=== PATIENT | male | born 1990 | race African-American/Black ===

== ENCOUNTER 2016-11-06 03:40 | Emergency (ER) | payer SELFPAY ==
[~2016-11-06] VITALS: Ht 180.3 cm; Wt 80.0 kg
[~2016-11-06 03:40] MED LIST: NAPR550 PO
[2016-11-06 03:41] VITALS: BP 141/86; PULSE 57; RESP 16; TEMP 98.2; O2SAT 100
[2016-11-06] MEDS ORDERED: PRED-503 PO (03:56)
[2016-11-06] MEDS ORDERED: VIST50CA PO (03:56)
[2016-11-06] MEDS ORDERED: diphenhydrAMINE HCL 50 MG/ML VIAL IM ONE (04:00)
[2016-11-06] MEDS ORDERED: DEXAMETHASONE SOD PHOS 20 MG/5 ML VIAL IM ONE (04:00)
--- NOTE | 2016-11-06 04:00 | PD ---
HPI Chief Complaint: Skin Problem Time Seen by Provider: 03:56 Travel History International Travel<30 days: No Contact w/Intl Traveler<30days: No Traveled to known affect area: No History of Present Illness HPI 26-year-old male presents to emergency department with complaints of a pruritic rash today. He states that he is unsure the etiology. He does report putting on some new close that was in his mother's garage. Is unsure whether it may have been the detergent or not. He states that the rash is pruritic in nature all over. Patient's rash is pruritic and irritating. He denies any other secondary complaints. No shortness of breath or wheezing. He denies any history of allergic reactions in the past. No other known exposures. [facility] Past Medical History Narrative Medical Denies Medical History: Denies Significant Hx Diminished Hearing: No Tetanus Vaccination: < 5 Years Influenza Vaccination: No Past Surgical History Surgical History: No Previous Surgery Social History Alcohol Use: Yes Tobacco Use: Yes Substance Use: No Allergies-Medications (Allergen,Severity, Reaction): Coded Allergies: No Known Allergies (Unverified , 11/06/16) Reported Meds & Prescriptions Reported Meds & Active Scripts Active No Active Prescriptions or Reported Medications Review of Systems Except as stated in HPI: all other systems reviewed are Neg Skin: Positive Rash, Positive Hives Neurologic: No: Weakness, Change in Mentation Physical Exam Narrative GENERAL: Well-developed, well-nourished in no acute distress. Nontoxic appearing. HEAD: Normocephalic, atraumatic. EYES: Pupils equal round and reactive. Extraocular motions intact. No scleral icterus. No injection or drainage. ENT: TMs clear without erythema. The external auditory canals clear. Nose: clear . Posterior pharynx is pink and moist. No tonsillar edema or exudate. Uvula midline. Airway patent. NECK: Trachea midline.Supple, nontender, moves head freely. No central bony tenderness or spasm. CARDIOVASCULAR: Regular rate and rhythm without murmurs, gallops, or rubs. RESPIRATORY: Clear to auscultation. Breath sounds equal bilaterally. No wheezes , rales, or rhonchi. GASTROINTESTINAL: Abdomen soft, non-tender, nondistended. No hepato-splenomegaly , or palpable masses. No guarding. EXTREMITIES: No clubbing, cyanosis, or edema. No joint tenderness, effusion, or edema noted. BACK: Nontender without deformity or crepitance. No flank tenderness. Skin: The patient has diffuse hives on the trunk and extremities. Data Data Last Documented VS Vital Signs Date Time Temp Pulse Resp B/P Pulse Ox O2 Delivery O2 Flow Rate FiO2 11/06/16 03:46 16 11/06/16 03:41 98.2 57 141/86 100 Room Air Orders Diphenhydramine Inj (Benadryl Inj) (11/06/16 04:00) Dexamethasone Inj (Decadron Inj) (11/06/16 04:00) MDM Medical Decision Making Medical Screen Exam Complete: Yes Emergency Medical Condition: Yes Medical Record Reviewed: Yes Differential Diagnosis MDM: High Differential diagnoses: Abscess, folliculitis, cellulitis, lymphangitis, abrasion, contact dermatitis, allergic reaction Narrative Course Patient's have an allergic reaction etiology unclear. Patient's given 50 g of Benadryl IM and Decadron 10 mg IM. This is allergic reaction Diagnosis Primary Impression: Allergic reaction Qualified Code: T78.40XA - Allergic reaction, initial encounter Patient Instructions: General Instructions Additional Instructions: Rest. Elevation. Take 1 Zyrtec or Claritin daily. Prednisone and Vistaril. Follow-up with a primary care doctor in one week. Return to the ER for any problems. Med/Other Pt SpecificInfo: Prescription(s) given Scripts Prednisone (Deltasone)20 Mg Tab20 Mg PO TID #15 TAB Prov:Iqra Edwards MD 11/06/16 Hydroxyzine Pamoate (Vistaril)50 Mg Cap50 Mg PO QID PRN (ITCHING) #30 CAP Prov:Iqra Edwards MD 11/06/16 Disposition: 01 DISCHARGE HOME Condition: Stable Tanner Hastings November 06, 2016 04:00
== END 2016-11-06 04:43 | disposition home or self-care (01) ==
LOC: NEPK 03:40
DX: T78.40XA Allergy, unspecified, initial encounter (principal); R21 Rash and other nonspecific skin eruption; L29.9 Pruritus, unspecified; Z72.0 Tobacco use
CPT/HCPCS: 99282

== ENCOUNTER 2017-03-21 19:08 | Emergency (ER) | payer SELFPAY ==
[~2017-03-21] VITALS: Ht 180.3 cm; Wt 79.5 kg
[~2017-03-21 19:08] MED LIST changes: -NAPR550 PO; +PRED-503 PO; +VIST50CA PO
[2017-03-21 19:09] VITALS: BP 135/85; PULSE 71; RESP 20; TEMP 98.5; O2SAT 100
[2017-03-21] MEDS ORDERED: AMOX500C PO (19:27)
[2017-03-21] MEDS ORDERED: DICL75TA PO (19:27)
--- NOTE | 2017-03-21 19:29 | PD ---
HPI Chief Complaint: Oral / Dental Pain or Problem Time Seen by Provider: 19:25 Travel History International Travel<30 days: No Contact w/Intl Traveler<30days: No Traveled to known affect area: No History of Present Illness HPI 27-year-old male presents to emergency Department with complaints of left upper maxilla dental pain. The patient states the pain is been present now for past 2 days. Mild to moderate intensity. He denies any fever chills. No facial swelling. No sore throat or ear pain. PFSH Past Medical History Medical History: Denies Significant Hx Diminished Hearing: No Tetanus Vaccination: < 5 Years Past Surgical History Surgical History: No Previous Surgery Social History Alcohol Use: Yes Tobacco Use: Yes Substance Use: No Allergies-Medications (Allergen,Severity, Reaction): Coded Allergies: No Known Allergies (Unverified , 11/06/16) Reported Meds & Prescriptions Reported Meds & Active Scripts Active Vistaril (Hydroxyzine Pamoate) 50 Mg Cap 50 Mg PO QID PRN Deltasone (Prednisone) 20 Mg Tab 20 Mg PO TID Review of Systems Except as stated in HPI: all other systems reviewed are Neg Physical Exam Narrative GENERAL: Well-developed, well-nourished in no acute distress. Nontoxic appearing. HEAD: Normocephalic, atraumatic. EYES: Pupils equal round and reactive. Extraocular motions intact. No scleral icterus. No injection or drainage. ENT: TMs clear without erythema. The external auditory canals clear. Nose: clear . Posterior pharynx is pink and moist. No tonsillar edema or exudate. Uvula midline. Airway patent. Patient has gingival erythema and edema around tooth #15 and 16. No appreciable cavity. NECK: Trachea midline.Supple, nontender, moves head freely. No central bony tenderness or spasm. CARDIOVASCULAR: Regular rate and rhythm without murmurs, gallops, or rubs. RESPIRATORY: Clear to auscultation. Breath sounds equal bilaterally. No wheezes , rales, or rhonchi. GASTROINTESTINAL: Abdomen soft, non-tender, nondistended. No hepato-splenomegaly , or palpable masses. No guarding. EXTREMITIES: No clubbing, cyanosis, or edema. No joint tenderness, effusion, or edema noted. BACK: Nontender without deformity or crepitance. No flank tenderness. Data Data Last Documented VS Vital Signs Date Time Temp Pulse Resp B/P (MAP) Pulse Ox O2 Delivery O2 Flow Rate FiO2 03/21/17 19:09 98.5 71 20 135/85 (102) 100 Room Air Orders Orders Amoxicillin (Trimox) (03/21/17 19:30) Acetamin-Hydrocod 325-5 Mg ([place] 5-325 (03/21/17 19:30) MDM Medical Decision Making Medical Screen Exam Complete: Yes Emergency Medical Condition: Yes Medical Record Reviewed: Yes Differential Diagnosis MDM: Moderate Differential diagnoses: Dental abscess, dental caries, osteitis, cellulitis Narrative Course Patient is given amoxicillin 1 g and Lortab 5 mg by mouth This is dentalgia Diagnosis Primary Impression: Dentalgia Patient Instructions: Narcotic given in the ED, General Instructions Additional Instructions: Rest. Saltwater gargles. [place] oil on cotton balls. Amoxicillin and diclofenac. follow-up with a dentist as soon as possible. And return to the ER if any problems. Med/Other Pt SpecificInfo: Prescription(s) given Scripts Diclofenac Sodium DR (Diclofenac Sodium DR) 75 Mg Tabdr 75 MG PO BID, #20 TAB 0 Refills Prov: Neal Calderón MD 03/21/17 Amoxicillin (Amoxicillin) 500 Mg Cap 1000 MG PO BID for Infection for 10 Days, #40 CAP 0 Refills Prov: Neal Calderón MD 03/21/17 Disposition: 01 DISCHARGE HOME Condition: Stable Tanner Hastings Mar 21, 2017 19:29
[2017-03-21] MEDS ORDERED: ACETAMINOPHEN/HYDROcodone 325 MG/5 MG TAB PO ONE (19:30)
[2017-03-21] MEDS ORDERED: AMOXICILLIN (TRIHYDRATE) 500 MG CAP PO ONE (19:30)
[2017-03-21] MEDS ORDERED: ACETAMINOPHEN/HYDROcodone 325 MG/5 MG TAB ONE (19:43)
[2017-03-21] MEDS ORDERED: AMOXICILLIN (TRIHYDRATE) 500 MG CAP ONE (19:43)
== END 2017-03-21 19:56 | disposition home or self-care (01) ==
LOC: NEPK 19:08
DX: K08.89 Other specified disorders of teeth and supporting structures (principal); Z72.0 Tobacco use; Z79.899 Other long term (current) drug therapy
CPT/HCPCS: 99284

== ENCOUNTER 2017-06-12 18:41 | Emergency (ER) | payer SELFPAY ==
[~2017-06-12] VITALS: Ht 182.9 cm; Wt 81.8 kg
[~2017-06-12 18:41] MED LIST changes: +AMOX500C PO; +DICL75TA PO
[2017-06-12 18:42] VITALS: BP 137/86; PULSE 86; RESP 18; TEMP 98.6; O2SAT 98
--- NOTE | 2017-06-12 19:47 | RADRPT ---
EXAM DATE/TIME: 06/12/2017 19:01 [place] COMPARISON: No previous studies available for comparison. INDICATIONS : Patient complains of pain in left 2nd-4th MTPJs after dropping a piece of furniture on left foot last night. MEDICAL HISTORY : None. SURGICAL HISTORY : None. ENCOUNTER: Initial ACUITY: 2 days PAIN SCORE: 8/10 LOCATION: Left Foot FINDINGS: Three view examination of the left foot demonstrates no soft tissue swelling, dislocation, or fractur e. The tarsal bones appear intact. The interphalangeal and metatarsophalangeal joints are intact. The calcaneus is intact. Bony mineralization is normal. CONCLUSION: No acute disease. Sylvester Rod MD on June 12, 2017 at 19:45 Board Certified Radiologist. This report was verified electronically.
--- NOTE | 2017-06-12 20:41 | PD ---
HPI Chief Complaint: Injury Time Seen by Provider: 20:27 Travel History International Travel<30 days: No Contact w/Intl Traveler<30days: No Traveled to known affect area: No History of Present Illness HPI 27-year-old male presents to the emergency room for evaluation of left foot pain and swelling after injuring it last night. Patient was going down the stairs when he dropped a large stressor on his foot. He had immediate pain. He has not taken anything for symptoms. He did apply an Vin wrap. Pain is worsened with certain range of motion and when he pushes on the area. He has been ambulatory without difficulty. Denies chronic medical conditions or daily medications. PFSH Past Medical History Diminished Hearing: No Social History Alcohol Use: Yes Tobacco Use: Yes Substance Use: No Allergies-Medications (Allergen,Severity, Reaction): Coded Allergies: No Known Allergies (Unverified , 11/06/16) Reported Meds & Prescriptions Reported Meds & Active Scripts Active Diclofenac Sodium DR (Diclofenac Sodium) 75 Mg Tabdr 75 Mg PO BID Amoxicillin 500 Mg Cap 1,000 Mg PO BID 10 Days Deltasone (Prednisone) 20 Mg Tab 20 Mg PO TID Vistaril (Hydroxyzine Pamoate) 50 Mg Cap 50 Mg PO QID PRN Review of Systems Except as stated in HPI: all other systems reviewed are Neg Physical Exam Narrative GENERAL: Well-nourished, well-developed male in no acute distress. Afebrile. Ambulatory. SKIN: Focused skin assessment warm/dry. Moderate ecchymosis HEAD: Normocephalic. EYES: No scleral icterus. No injection or drainage. NECK: Supple, trachea midline. No JVD or lymphadenopathy. CARDIOVASCULAR: Regular rate and rhythm without murmurs, gallops, or rubs. RESPIRATORY: Breath sounds equal bilaterally. No accessory muscle use. MUSCULOSKELETAL: No cyanosis. Moderate edema of the left foot especially around the second and third metatarsophalangeal joints. 2+ dorsalis pedis pulse. Less than 2 second capillary refill distally. Full range of motion of the foot but with pain. Compartments soft. Data Data Last Documented VS Vital Signs Date Time Temp Pulse Resp B/P (MAP) Pulse Ox O2 Delivery O2 Flow Rate FiO2 06/12/17 18:42 98.6 86 18 137/86 (103) 98 Room Air Orders Orders Foot, Complete ([id number]) (06/12/17 ) [facility] Medical Decision Making Medical Screen Exam Complete: Yes Emergency Medical Condition: Yes Medical Record Reviewed: Yes Differential Diagnosis Contusion, fracture, sprain, strain Narrative Course 27-year-old male presents to the emergency room for evaluation of left foot pain after dropping a dresser on it last night. Left foot is neurovascularly intact with 2+ dorsalis pedis pulse and less than 2 second capillary refill distally. Compartments soft. X-ray is negative. Discharged with orthopedic instructions. Patient told to follow-up with a primary care physician or return for worsening symptoms. He understands and agrees to plan. Diagnosis Primary Impression: Contusion of left foot Qualified Codes: S90.32XA - Contusion of left foot, initial encounter Referrals: Primary Care Physician Additional Instructions: Rest and drink plenty of fluids. Take ibuprofen with food as directed, as needed for pain. Elevate as much as possible. Keep wrapped. Apply ice to the affected area for 20 minutes at a time, as needed for pain and swelling. Follow-up with a primary care physician. Return to the emergency room for worsening symptoms. Disposition: 01 DISCHARGE HOME Condition: Stable Arianna Restrepo Jun 12, 2017 20:41
== END 2017-06-12 21:24 | disposition home or self-care (01) ==
LOC: NEPK 18:41
DX: S90.32XA Contusion of left foot, initial encounter (principal); W20.8XXA Other cause of strike by thrown, projected or falling object, initial encounter; Y93.89 Activity, other specified
CPT/HCPCS: 73630; 99283

== ENCOUNTER 2017-09-05 23:13 | Emergency (ER) | payer SELFPAY ==
[~2017-09-05] VITALS: Ht 180.3 cm; Wt 81.5 kg
[2017-09-05 23:46] VITALS: BP 134/74; PULSE 57; RESP 16; TEMP 97.5; O2SAT 98
[2017-09-05] MEDS ORDERED: BACT800T5 PO (23:58)
[2017-09-06] MEDS ORDERED: SULFAMETHOXAZOLE-TRIMETHOPRIM DS 800-160 MG TAB PO ONE
--- NOTE | 2017-09-06 00:04 | PD ---
HPI Chief Complaint: Injury Time Seen by Provider: 23:53 Travel History International Travel<30 days: No Contact w/Intl Traveler<30days: No Traveled to known affect area: No History of Present Illness HPI 27-year-old black male presents emergency department with complaints of left index finger pain. 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 He denies any fever or chills. No numbness or tingling. No known trauma. PFSH Past Medical History Medical History: Denies Significant Hx Diminished Hearing: No Tetanus Vaccination: < 5 Years Influenza Vaccination: No Past Surgical History Surgical History: No Previous Surgery Social History Alcohol Use: Yes Tobacco Use: Yes Substance Use: No Allergies-Medications (Allergen,Severity, Reaction): Coded Allergies: No Known Allergies (Unverified , 11/06/16) Reported Meds & Prescriptions Reported Meds & Active Scripts Active Bactrim DS (Sulfamethoxazole-Trimethoprim) 800-160 Mg Tab 1 Tab PO BID Diclofenac Sodium DR (Diclofenac Sodium) 75 Mg Tabdr 75 Mg PO BID Amoxicillin 500 Mg Cap 1,000 Mg PO BID 10 Days Deltasone (Prednisone) 20 Mg Tab 20 Mg PO TID Vistaril (Hydroxyzine Pamoate) 50 Mg Cap 50 Mg PO QID PRN Review of Systems Except as stated in HPI: all other systems reviewed are Neg General / Constitutional: No: Fever, Chills Musculoskeletal: Positive: Pain, No: Myalgias, Arthralgias, Limited ROM Skin: No Rash, No Itching Physical Exam Narrative GENERAL: This is a well-nourished, well-developed patient, in no apparent distress. SKIN: No rashes, ecchymoses or lesions. Warm and dry. HEAD: Atraumatic. Normocephalic. EYES: PERRL, EOMI, no discharge or injection. No scleral icterus. EARS: Clear NOSE: Nasal turbinates appear normal. THROAT: Mucosa pink and moist. Airway patent. NECK: Trachea midline. supple, moves head freely. LUNGS: Clear to auscultation. CV: Regular in rhythm. ABDOMEN: Soft nontender. EXT: No clubbing cyanosis or edema. Examination of the left index finger reveals pain along the lateral aspect of the nailbed. There is mild swelling. No fluctuance or pointing. No erythema or warmth. No evidence of trauma. Data Data Last Documented VS Vital Signs Date Time Temp Pulse Resp B/P (MAP) Pulse Ox O2 Delivery O2 Flow Rate FiO2 09/05/17 23:46 97.5 57 16 134/74 (94) 98 Orders Orders Sulfamet-Trimeth Ds 800-160 Mg (Bactrim (09/06/17 00:00) Ed Discharge Order (09/05/17 23:55) MDM Medical Decision Making Medical Screen Exam Complete: Yes Emergency Medical Condition: Yes Medical Record Reviewed: Yes Differential Diagnosis MDM: High Differential diagnoses: Abscess, folliculitis, cellulitis, lymphangitis, abrasion, contact dermatitis, paronychia Narrative Course This is paronychia patient is given Bactrim DS p.o. Diagnosis Primary Impression: Paronychia of left index finger Patient Instructions: General Instructions Additional Instructions: Rest. Elevation. Epson salt soaks 3 times daily. 3 Advil every 6 hours. Bactrim DS. Recheck with a primary care doctor in the next 3-5 days. Return to the ER if any problems. Med/Other Pt SpecificInfo: Prescription(s) given Scripts Sulfamethoxazole-Trimethoprim (Bactrim DS) 800-160 Mg Tab 1 TAB PO BID for Infection, #20 TAB 0 Refills Prov: Chito Loza MD 09/05/17 Disposition: 01 DISCHARGE HOME Condition: Stable Tanner Hastings Sep 06, 2017 00:04
== END 2017-09-06 00:23 | disposition home or self-care (01) ==
LOC: NEPD 23:13
DX: L03.012 Cellulitis of left finger (principal); Z72.0 Tobacco use
CPT/HCPCS: 99283

== ENCOUNTER 2017-09-06 14:42 | Emergency (ER) | payer SELFPAY ==
[~2017-09-06] VITALS: Ht 180.3 cm; Wt 81.5 kg
[~2017-09-06 14:42] MED LIST changes: +BACT800T5 PO
[2017-09-06 14:48] VITALS: BP 123/65; PULSE 49; RESP 18; TEMP 97.3; O2SAT 99
== END 2017-09-06 16:28 | disposition left against medical advice (07) ==
LOC: NED 14:42
DX: R07.81 Pleurodynia (principal)
CPT/HCPCS: 99281

== ENCOUNTER 2017-10-13 09:52 | Emergency (ER) | payer SELFPAY ==
[~2017-10-13] VITALS: Ht 180.3 cm; Wt 83.0 kg
[2017-10-13 10:01] VITALS: BP 134/75; PULSE 63; RESP 18; TEMP 97.7; O2SAT 99
[2017-10-13] MEDS ORDERED: TRAM50TA PO (10:10)
[2017-10-13] MEDS ORDERED: PENI500T PO (10:10)
--- NOTE | 2017-10-13 10:19 | PD ---
HPI Chief Complaint: Oral / Dental Pain or Problem Time Seen by Provider: 10:04 Travel History International Travel<30 days: No Contact w/Intl Traveler<30days: No Traveled to known affect area: No History of Present Illness HPI This patient complains of dental pain. Location is left upper molar. Duration 2 days. Severity is moderate. He does not have a dentist [facility] Past Medical History Diminished Hearing: No Social History Alcohol Use: Yes Tobacco Use: Yes Substance Use: No Allergies-Medications (Allergen,Severity, Reaction): Coded Allergies: No Known Allergies (Unverified Adverse Reaction, Unknown, 09/06/17) Reported Meds & Prescriptions Reported Meds & Active Scripts Active Tramadol (Tramadol HCl) 50 Mg Tab 50 Mg PO Q6H PRN Penicillin V Potassium 500 Mg Tab 500 Mg PO Q8H Review of Systems General / Constitutional: No: Fever HENT: Positive: Dental Difficulties, No: Headaches Respiratory: No: Cough Gastrointestinal: No: Vomiting Physical Exam Narrative SKIN: Focused skin assessment reveals no rash or ulcers. Skin is warm and dry. Palpation shows no induration or nodules. NECK: Symmetrical appearance, midline trachea. No mass or crepitus. Thyroid without enlargement, tenderness, or mass. Psych: Normal mood and affect. Normal insight and judgment. Oral cavity: Several fillings noted. Uvula midline without swelling. No gingival abscess. Data Data Last Documented VS Vital Signs Date Time Temp Pulse Resp B/P (MAP) Pulse Ox O2 Delivery O2 Flow Rate FiO2 10/13/17 10:01 97.7 63 18 134/75 (94) 99 MDM Medical Decision Making Medical Screen Exam Complete: Yes Emergency Medical Condition: Yes Medical Record Reviewed: Yes Differential Diagnosis Dental cavity, gingivitis, abscess Narrative Course I have reviewed the patient's electronic medical record. Patient's been here multiple times for minor complaints I have written him some penicillin and a few tramadol. I suspect he has a dental cavity. Gave him a handout for dental follow-up Diagnosis Primary Impression: Pain, dental Additional Instructions: Follow-up with dentist The patient was warned about potential sedation for the medications they will receive on prescription. Med/Other Pt SpecificInfo: Prescription(s) given Scripts Tramadol (Tramadol) 50 Mg Tab 50 MG PO Q6H Y for PAIN, #12 TAB 0 Refills Prov: Tres Barbosa MD 10/13/17 Penicillin V Potassium (Penicillin V Potassium) 500 Mg Tab 500 MG PO Q8H for Infection, #20 TAB 0 Refills Prov: Tres Barbosa MD 10/13/17 Disposition: 01 DISCHARGE HOME Condition: Stable Tres Barbosa MD Oct 13, 2017 10:19
== END 2017-10-13 10:28 | disposition home or self-care (01) ==
LOC: NEPD 09:52
DX: K08.89 Other specified disorders of teeth and supporting structures (principal); Z72.0 Tobacco use
CPT/HCPCS: 99283